=== PATIENT | male | born 1970 | race Caucasian/White ===

== ENCOUNTER 2020-10-11 12:30 | Outpatient (REF) | payer BC, SELFPAY ==
[2020-10-11 12:42] LABS: COVID-19 Test Positive (Negative)
== END 2020-10-11 12:31 | disposition home or self-care (01) ==
LOC: HO.LAB 12:30
PROVIDERS: PCP Internal Medicine; Visit Provider Internal Medicine
DX: Z20.828 Contact with and (suspected) exposure to other viral communicable diseases (principal)
CPT/HCPCS: 36415; 87635; C9803

== ENCOUNTER 2023-07-19 06:49 | Day surgery (SDC) | payer BC, SELFPAY ==
--- NOTE | 2023-07-18 10:36 | P.CONAN_ITS ---
Documented by User: Christian Calvillo NP 07/18/23 10:37 HPI - Anesthesia Eval Consult details Narrative: 53yo M for Colonoscopy [facility] Past Medical History Medical History Environmental allergies HTN (hypertension) HLD (hyperlipidemia) History of paresthesia Asthma Surgical History Surgical History History of oral surgery Hx of umbilical hernia repair H/O arthroscopy of left knee Social History Social History Patient Tobacco Use Status: Never used Tobacco Are you DNR?: No Advance Directives: No Advance Directives Information Provided: Yes Nutrition Risks: No Nutritional Risk Meds Allergies Allergy/AdvReac Type Severity Reaction Status Date / Time horse dander [HORSE DANDER] Allergy Unknown ASTHMA Unverified 06/23/20 14:53 Home Medications Medication Instructions Recorded Confirmed Last Taken Type albuterol sulfate 90 mcg/actuation 2 puff inhalation Q6H PRN 07/22/20 07/22/20 Unknown History aerosol inhaler (ProAir HFA) Shortness Of Breath Or Wheezing budesonide-formoterol HFA 160 2 puff inhalation BID 07/22/20 07/22/20 07/19/23 History mcg-4.5 mcg/actuation aerosol inhaler (Symbicort) lisinopril 10 mg tablet 10 mg PO DAILY 07/22/20 07/22/20 07/19/23 History Exam Exam Date and Time: July 18, 2023 1036 Assessment and Plan Assessment Anesthesia Assessment: Chart Reviewed Documented by User: Ericka Vargas MD 07/19/23 07:42 [facility] Active Problems Active Problems: Left arm paresthesia resolved Denies CAMI. Never tested but does snore Increased BMI 49.6 Asthma - inhaler prn Past Medical History Medical History Environmental allergies HTN (hypertension) HLD (hyperlipidemia) History of paresthesia Asthma Family History Family history of problems with anesthesia: Yes (Unsure but brother had problems as a child-tonsillectomy) Surgical History Surgical History History of oral surgery Hx of umbilical hernia repair H/O arthroscopy of left knee History of Problems with Anesthesia: No Social History Social History Patient Tobacco Use Status: Never used Tobacco Are you DNR?: No Advance Directives: No Advance Directives Information Provided: Yes Nutrition Risks: No Nutritional Risk Meds Allergies Allergy/AdvReac Type Severity Reaction Status Date / Time horse dander [HORSE DANDER] Allergy Unknown ASTHMA Unverified 06/23/20 14:53 Home Medications Medication Instructions Recorded Confirmed Last Taken Type albuterol sulfate 90 mcg/actuation 2 puff inhalation Q6H PRN 07/22/20 07/22/20 Unknown History aerosol inhaler (ProAir HFA) Shortness Of Breath Or Wheezing budesonide-formoterol HFA 160 2 puff inhalation BID 07/22/20 07/22/20 07/19/23 History mcg-4.5 mcg/actuation aerosol inhaler (Symbicort) lisinopril 10 mg tablet 10 mg PO DAILY 07/22/20 07/22/20 07/19/23 History Exam Height,Weight and Vital Signs: Height 5 ft 10 in Weight 156.943 kg Vital Signs Temp Pulse Resp BP Pulse Ox O2 Del Method 07/19/23 06:54 96.9 F 81 20 153/117 H 95 Room Air Airway Mallampati Class: IV TM Dist: >3cm Neck ROM: Full Loose/Missing/Broken Teeth: No (Denies broken, loose, missing teeth) Heart: RRR Lungs: CTAB Assessment and Plan Assessment Anesthesia Assessment: Anesthesia Plan Discussed Final Anesthetic Review Family History of Problems with Anesthesia: Yes (Unsure but brother had problems as a child-tonsillectomy) History of Problems with Anesthesia: No NPO: Yes ASA Class: III Final Preanesthetic Review: No Changes in Pt Med Stat, Meds/Allgs Chart Reviewed, Consent Obtained/Reviewed and Anes Risks/Benef Reviewed Patient Risk: Intermediate Procedure Risk: Low Assessment/Block/Sedation in SS: Assess/Block/Sedation-SS Anesthetic Plan Anesthetic Plan: GA and MAC:
[2023-07-19 05:55] VITALS: BMI 49.6
[2023-07-19 06:54] VITALS: BP 153/117; PULSE 81; RESP 20; TEMP 36.1; O2SAT 95
[2023-07-19] MEDS: Lactated Ringers 1,000 ML 100 ML IVCONT (07:19)
[2023-07-19 07:42] VITALS: BP 166/85
--- NOTE | 2023-07-19 08:10 | MHC.SHP ---
Pre-Procedural Eval Section A Date of Service: 07/19/23 Section B Chief Complaint: Melena Details of Present Illness: see H&P Relevant Family History (Specify if Yes): No Relevant Social History: None Present Medications: see Short Stay Collaborative assessment Medical History: No relevant PMH History of Previous Operations: No relevant previous surgery Allergies: Allergies Allergy/AdvReac Type Severity Reaction Status Date / Time horse dander [HORSE DANDER] Allergy Unknown ASTHMA Unverified 06/23/20 14:53 Plan I have reviewed the history and physical and performed a pertinent physical examination on my patient. No changes have occurred unless specified. Time Spent With Patient Time: Total time managing care of this patient today ____ minutes.
--- NOTE | 2023-07-19 09:03 | PM.OP ---
Brief Operative Note Date of Service: 07/19/23 Pre-op diagnosis: blood in stool Post-op diagnosis: same Procedure: colonoscoyp Surgeon: Toño White MD Anesthesia: MAC Was an Product Representative used for this Procedure?: No Estimated blood loss (mL): 2 Pathology: other Condition: stable Disposition: PACU
[2023-07-19 09:04] VITALS: BP 95/40; PULSE 83; RESP 16; TEMP 37; O2SAT 98
--- NOTE | 2023-07-19 09:17 | OP_ITS ---
DATE OF SERVICE: 07/19/2023 SURGEON: Toño White MD INDICATIONS: Blood in the stool. PREOPERATIVE DIAGNOSIS: POSTOPERATIVE DIAGNOSIS: PROCEDURE PERFORMED: Colonoscopy to the terminal ileum with snare polypectomy and biopsy. ESTIMATED BLOOD LOSS: COMPLICATIONS: ANESTHESIA: Monitored anesthesia care. ASSISTANTS: SPECIMENS: DESCRIPTION OF PROCEDURE: History and physical performed, the risks and benefits of the procedure were explained to the patient. Informed consent was obtained. The patient was placed in the left lateral decubitus position. A digital rectal exam was performed and was found to be normal. The Olympus pediatric video colonoscope was introduced into the rectum and advanced to the cecum. The cecum was identified by transillumination, palpation, and identification of ileocecal valve. Examination was performed. The scope was removed. He tolerated the procedure well and was taken to recovery in stable condition. FINDINGS: The terminal ileum was normal. The visualized colonic mucosa was normal. The quality of the prep was good. There was some retained stool coating the mucosa in the right colon and cecum. This was washed and suctioned. Two polyps were identified. The 1st was measured approximately 8 mm and was removed with a snare. The base of the polyp was biopsied and recovery of the snared part of the polyp is pending at the time of the procedure. The 2nd polyp was removed with biopsy forceps measuring less than 5 mm. The polyps were located at 85 cm and 75 cm. There was moderate sigmoid diverticulosis with wide-mouth diverticula. Retroflexed examination showed some moderate-sized internal hemorrhoids, likely the source of the blood in the stool. IMPRESSION: Colon polyps. RECOMMENDATIONS: Follow up with the biopsy results. MD JES Delaney/DARAL / [id number]
[2023-07-19 09:19] VITALS: BP 143/75; PULSE 80; RESP 16; TEMP 36.8; O2SAT 95
== END 2023-07-19 09:40 | disposition home or self-care (01) ==
PROVIDERS: PCP Internal Medicine; Visit Provider Internal Medicine Gastroenterology
PROC: 0DJD8ZZ Inspection of Lower Intestinal Tract, Via Natural or Artificial Opening Endoscopic (ICD-10-PCS; CPT 45378; principal; 2023-07-19 08:00)
DX: K92.1 Melena (principal); D12.4 Benign neoplasm of descending colon; K63.5 Polyp of colon; K57.30 Diverticulosis of large intestine without perforation or abscess without bleeding; K64.8 Other hemorrhoids; I10 Essential (primary) hypertension; E78.5 Hyperlipidemia, unspecified; J45.909 Unspecified asthma, uncomplicated; Z79.51 Long term (current) use of inhaled steroids; Z79.899 Other long term (current) drug therapy
CPT/HCPCS: 45385; 45380; 88305; J2250

== ENCOUNTER 2025-01-08 09:15 | Outpatient (REF) | payer BC, SELFPAY ==
--- NOTE | ~2025-01-08 | XR_ITS ---
EXAMINATION: XR WRIST 3 OR MORE VIEWS RIGHT HISTORY: LUMP OVER RADIAL ARTERY. R/O GANGLION COMPARISON: There are no prior studies available for comparison. FINDINGS: Three views of the right wrist are submitted. Osseous mineralization is normal. There is no fracture or dislocation. There is mild degenerative change of the 1st carpometacarpal joint, with joint space narrowing and subchondral cyst formation. The soft tissues are unremarkable. XR/XR wrist RT min 3V IMPRESSION: Mild degenerative change of the 1st carpometacarpal joint. Electronically signed by: Devonte Underwood MD 01/08/2025 12:34 PM EDT
--- OUTSIDE RECORDS SUMMARY | 2025-01-08 09:58 | XMS_ITS | Clinical Summary ---
Author Organization [address] Address [address] [place] [phone] Phone Care Team Providers Care Visualizer Name Role Phone John Julian MD Primary Care Provider Allergies No known active allergies Medications fluticasone-salm eterol (ADVAIR DISKUS) 250-50 mcg/dose diskus inhaler Inhale 1 puff into the lungs 2 (two) times daily.. 1 each 04/15/2017 Active Social History Tobacco Use Types Packs/Day Years Used Date Smoking Tobacco: Never Alcohol Use Standard Drinks/Week Comments Yes 0 (1 standard drink = 0.6 oz pur e alcohol) socially Sex and Gender Information Value Date Recorded Sex Assigned at Not on file Legal Sex Male 10:49 AM EDT Gender Identity Not on file Sexual Orientation Not on file Last Filed Vital Signs Vital Sign Reading Time Taken Comments Blood Pressure 140/90 04/15/2017 12:59 PM EDT Pulse 81 04/15/2017 12:59 PM EDT Temperature - - Respiratory Rate 18 04/15/2017 12:59 PM EDT Oxygen Saturation 98% 04/15/2017 12:59 PM EDT Inhaled Oxygen Concentration - - Weight 136.1 kg (300 lb) 04/15/2017 10:58 AM EDT Height 177.8 cm (5' 10 ) 04/15/2017 10:58 AM EDT Body Mass Index 43.05 04/15/2017 10:58 AM EDT Plan of Treatment Health Maintenance Due Date Last Done Comments HIV screening 1981 Hepatitis C screening 1986 Tetanus adult (Td q 10,TDAP once) 1988 Lipid disorder screening 2008 Colon cancer screening, Colonoscopy 2013 Shingles vaccine (Shingrix) (1 of 2 - Shingrix (RZV) 2 Dose Standard Series) 2018 Diabetes screening 04/15/2020 04/15/2017 Influenza vaccine 05/07/2024 Covid-19 vaccine series (1 - 2023-25 season) 2024 Pneumococcal Vaccine (50+ ye ars) (1 of 1 - PCV) 2033 RSV Immunization (1 - 1-dose 75+ series) 2043 Meningococcal Vaccine Aged Out No moriah stephanie eligible based on patient's age to complete this topic Pneumococcal Vaccine (2 - 49 years) Aged Out No longer eligible b ased on patient's age to complete this topic Procedures Procedure Name Priority Date/Time Associated Diagnosis Comments BASIC METABOLIC PANEL STAT 04/15/2017 11:43 AM EDT from Last 3 Months or Most Recently Relevant to Health Maintenance Results * (ABNORMAL) Basic metabolic panel (04/15/2017 11:43 AM EDT) Glucose 119(H) 65 - 110 mg/dL 04/15/2017 12:27 PM [facility] BUN 15 7 - 18 mg/dL 04/15/2017 12:27 PM [facility] Creatinine 0.77 0.70 - 1.30 mg/dL 04/15/2017 12:27 PM [facility] eGFR (-SOMALI) >60 >60 mL/min/1. 73m2 04/15/2017 12:27 PM [facility] eGFR (NON -Congolese) >60 >60 mL/min/1. 73m2 04/15/2017 12:27 PM [facility] Comment: (NOTE) ? These are estimated GFR values resulting from ? utilization of a calculation incorporating ? the best data available for input, but all ? assumptions may not be correct in every ? case. ??In addition, there are several ? situations (elderly over 70 years, , ? serious co morbidities, extremes ? of body size or nutritional status) which ? could contribute to a misleading result. ? Therefore, clinical correlation is advised ? to prevent arriving at an erroneous ? conclusion based solely on the calculation ? utilized. (NOTE) ? These are estimated GFR values resulting from ? utilization of a calculation incorporating ? the best data available for input, but all ? assumptions may not be correct in every ? case. ??In addition, there are several ? situations (elderly over 70 years, , ? serious co morbidities, extremes ? of body size or nutritional status) which ? could contribute to a misleading result. ? Therefore, clinical correlation is advised ? to prevent arriving at an erroneous ? conclusion based solely on the calculation ? utilized. Sodium 137 136 - 145 mmol/L 04/15/2017 12:27 PM [facility] Potassium 4.2 3.5 - 5.1 mmol/L 04/15/2017 12:27 PM [facility] Chloride 105 98 - 107 mmol/L 04/15/2017 12:27 PM [facility] CO2 26 21 - 32 mmol/L 04/15/2017 12:27 PM [facility] Anion Gap 6 5 - 15 mmol/L 04/15/2017 12:27 PM [facility] Calcium 8.7 8.5 - 10.1 mg/dL 04/15/2017 12:27 PM [facility] Blood specimen (specimen) Venipuncture / Unknown 04/15/2017 11:43 AM EDT 04/15/2017 11:46 AM EDT us Benoit Fernandez MD LAB BLOOD ORDERABLES Fi nal Result [facility] [address] [place] [address], [facility] [phone] from Last 3 Months or Most Recently Relevant to Health Maintenance Insurance [facility] Care Teams Visualizer Relationship Specialty Start Date End Date John Julian MD [address] [place] [address] PCP - General Internal Medicine 04/15/17
--- OUTSIDE RECORDS SUMMARY | 2025-01-08 09:58 | XMS_ITS ---
Author Organization [facility] Address [address] [place] [phone] Care Team Providers Care Svp Programmatic Tv Name Role Phone Eliel KERNS, John Primary Care Provider Unavailab Toño Dickinson Jr Unavailable REASON FOR VISIT blood in stool Encounters Encounter Location Date Provider Diagnosis [facility] Outpatient [address] [place] [phone] 07/19/2023 Toño White Jr Hematochezia K92.1 and Colon polyps K63.5 Assessments Encounter Date Diagnosis (ICD Code) Assessment Notes Treatment Notes Treatment Clinical Notes Section Notes 07/19/2023 Hematochezia (ICD-10 - K92.1) 07/19/2023 Colon polyps (ICD-10 - K63.5) Plan Of Treatment No Information Progress Notes * LUIS A CHASE PDOB: [birth year] (54 yo M)Acc No.[id number]:07/19/2023 COLON WITH MAC Patient:?LUIS A CHASE Provider:?Toño White MD :1970???Age:53 Y???Sex:Male He e:07/19/2023 Address:[address] [place] [address] Pcp:John Julian MD Subjective: * Chief Complaints: * ???1. Blood in stool. * Medical History:? Objective: * Vitals:? Assessment: * Assessment: 1.?Hematochezia - K92.1 (Bebe scarlet)???2.?Colon polyps - K63.5??? Plan: * Treatment: * Procedure Codes:?26022 LESIO N REMOVAL COLONOSCOPY, 99223 COLONOSCOPY AND BIOPSY, Modifiers: 59 * * The named appointment provid er may or may not be the originator of this progress note, and it is not deemed complete until electronically signed by the appointment provider. Sign off status: Pending * Provider:?Toño White MD Date:?1 Generated for Eileen mojica/Rajesh/Rangelitting on:?01/08/2025 09:58 AM EDT
--- OUTSIDE RECORDS SUMMARY | 2025-01-08 09:58 | XMS_ITS ---
Author Organization [facility] Address [address] [place] [phone] Care Team Providers Care Embossograph Operator Name Role Phone John Julian MD Primary Care Provider Unavailab Toño Dickinson Jr Unavailable REASON FOR VISIT pathology Encounters Encounter Location Date Provider Diagnosis [facility] [address] [place] [phone] 07/23/2023 Toño White Jr Plan Of Treatment No Information Progress Notes * LUIS A CHASE PDOB: [birth year] (53 yo M)Acc No.[id number]:07/23/2023 Patient:?LUIS A CHASE :1970???Age:53 Y???Sex:Male Address:[address] [place] [address], [id number] * true * Date:? Generated for Printi galina/Naelg/eTransmitting on:?01/08/2025 09:58 AM EDT
--- OUTSIDE RECORDS SUMMARY | 2025-01-08 09:58 | XMS_ITS | Patient Health Record ---
Author Organization [facility] Address [address] [place] [address] Care Team Providers Care Title I Paraprofessional Name Role Phone John Julian MD Primary Care Provider Toño Gonzalez Jr Unavailable Allergies Allergen (clinical drug ingredient) Drug/Non Drug Allergy documented on EMR Reaction Allergy Type Onset Date Status enviromental and animals (uncoded) Unknown Allergy Active Reason For Referral No Information Medications Medication SIG (Take, Route, Frequency, Duration) Notes Start Date End Date Status MiraLax (colon prep) 17 GM/SCOOP mixed with Gatorade or Crystal Light Orally begin at 5:00 p.m. the day before the procedure for 1 day 05/27/2023 Active Rosuvastatin Calcium 5 MG Oral for 30 Active Albuterol Sulfate HFA 108 (90 Base) MCG/ACT Inhalation for 30 Activ e Lisinopril 10 MG Oral for 30 A ctive Symbicort 160-4.5 MCG/ACT 2 puffs Inhala tion Twice a day Active Multivitamin Active Vitamin B Complex Ac tive Immunizations Vaccine Route Administration Date Status Comme nts Influenza Unknown 07/21/2018 Administered Influenza Unknown 06/07/2019 Administered Social History Tobacco Use: Social History Observation Description Date Details (start date - stop date) Never Smoker NA - NA Tobacco Use/Smoking Question Answer Notes Patient is a nonsmoker Alcohol Screen Question Answer Notes Did you have a drink contain ing alcohol in the past year? Yes How often did you have a dri nk containing alcohol in the past year? 2 to 4 times a month (2 points) How many drinks did you have on a typical day when you were drinking in the past year? 5 or 6 drinks (2 points) How often did you have 6 or more drinks on one occasion in the past year? Monthly (2 points) Points 6 Interpretation Positive Problems Problem Type SNOMED Code ICD Code Onset Dates Problem Status W/U Status Risk Notes Problem 177931713 Colon cancer screening (Z12.11) Active confirmed Problem 225061718 Encounter for other preprocedural examination (Z01.818) Active confirmed Problem 776603838 Blood in stool (K92.1) Active confirmed Plan Of Treatment Future Test Test Name Order Date COLONOSCOPY 12/10/2018 COLONOSCOPY 12/10/2019 COLONOSCOPY 05/27/2023 Insurance Providers Payer Name Payer Address Payer Phone Subscriber Number Group Number Insured Name Patient Relationship to Insured Coverage Start Date Coverage End Date [facility] [address] [place] [address] [id number] LUIS A CHASE Self - patient is the insured Medical (General) History Medical History History ICD Code Hypertension asthma Hyperlipidemia Surgical History Surgery Date(Month/Year) left knee arthroscopy x4 1982,1988,2001, 2004 umbilical hernia repair 2017 oral surgery implant 2013
== END 2025-01-08 09:16 | disposition home or self-care (01) ==
LOC: HO.HMGCX 09:15
PROVIDERS: PCP Internal Medicine; Visit Provider Internal Medicine
DX: R22.31 Localized swelling, mass and lump, right upper limb (principal)
CPT/HCPCS: 73110

== ENCOUNTER → 2025-01-08 09:21 | Outpatient (BNV) | payer BC, SELFPAY | PROVIDERS: PCP Internal Medicine; Visit Provider Radiology Diagnostic Radiology | DX: R22.31 Localized swelling, mass and lump, right upper limb (principal) | CPT/HCPCS: 73110 ==

== ENCOUNTER 2025-03-10 08:26 | Outpatient (AMB) | payer BC, SELFPAY ==
--- NOTE | 2025-03-10 08:27 | A.OFFVIS_ITS ---
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 Patient reports he notices it for a couple of years. He notices that it got bigger these past couple months. Patient mentions that it is not tender to touch but it feel like fluid. 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 He has noticed this mass for approximately two years, with significant growth noted during the last three to six months. 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 An X-ray was previously obtained and reviewed in consultation, showing no alarming findings. The patient experiences night-time discomfort, suggesting possible carpal tunnel syndrome. Discussed potential surgical intervention versus observation, considering future risks related to the cyst's growth. Review of Systems - Musculoskeletal: Reports a mass on the wrist, pain, and numbness. - Neurological: Reports numbness and tingling. - General: Denies diabetes, blood thinner use, or CPAP therapy. Physical Exam - Musculoskeletal- Presence of a volar wrist mass over radial styloid. nontender to palpation, fluid filled. minimally mobile. Results - Tests and Diagnostics: X-ray of the wrist, showing no significant arthritis or abnormalities. Plan I educated the patient about the condition. I discussed both operative and nonoperative treatment options. The patient would like to proceed with surgery. The risks and benefits of operative treatment were discussed with the patient and the patient wishes to proceed with surgery. These risks include, but are not limited to, risk of damage to blood vessels, nerves, tendons, infection, recurrence, incomplete relief of preoperative symptoms, persistent pain, possible need for further surgery, and the risks associated with regional blocks and/or anesthesia. Plan is to take the patient to the operating room at some point in the next few weeks for the following procedures: 1. Volar wrist ganglion excision under general All of the preoperative paperwork including the consent was discussed today. All of the patient's questions were answered in the clinic today. The patient understands that they will be in contact with our surgical sales representative to discuss scheduling their procedure. Patient denies diabetes, blood thinners, asthma, heart issues, lung issues, kidney issues, or current smoking. Discussion Notes I discussed with the patient the likely diagnosis of a ganglion cyst and the available management options. Surgical removal was recommended due to the cyst's growth and location over the radial artery. Alternatives of observing were considered, with emphasis on the potential for further growth and resultant complications if untreated. Consent included risks such as infection, scarring, injury to nearby structures, and recurrence, balanced with its benefits and anticipated improvement in symptoms. The patient expressed understanding and agreement with the surgical approach, preferring scheduling in early June. Instructions provided include preoperative preparations and post-operative restrictions, ensuring detailed follow-up for optimal outcomes post-surgery. Coding Level of Care Code New Pt Level 4 (59273) Diagnoses Ganglion cyst of volar aspect of right wrist M67.431
--- OUTSIDE RECORDS SUMMARY | 2025-03-10 08:33 | XMS_ITS | Clinical Summary ---
Author Organization [address] Address [address] [place] [phone] Phone Care Team Providers Care Deputy Sheriff Civil Division Name Role Phone oJhn Julian MD Primary Care Provider Allergies No [...] screening 2008 Colon cancer screening, Colonoscopy 2013 Pneumococcal Vaccine (50+ ye ars) (1 of 1 - PCV) 2018 Shingles vaccine (Shingrix) (1 of 2 - Shingrix (RZV) 2 Dose Standard Series) 2018 Diabetes screening 04/15/2020 04/15/2017 Covid-19 vaccine series (1 - 2023-25 season) 2024 Influenza vaccine 06/07/2025 RSV Immunization (1 - 1-dose 75+ series) [...] 65 - 110 mg/dL 04/15/2017 12:27 PM [facility] BUN 15 7 - 18 mg/dL 04/15/2017 12:27 PM [facility] Creatinine 0.77 0.70 - 1.30 mg/dL 04/15/2017 12:27 PM [facility] eGFR (-DOMINICAN) >60 >60 mL/min/1. 73m2 04/15/2017 12:27 PM [facility] eGFR (NON -Finnish) >60 >60 mL/min/1. 73m2 04/15/2017 12:27 PM [facility] Comment: (NOTE) ? These are [...] 136 - 145 mmol/L 04/15/2017 12:27 PM [facility] Potassium 4.2 3.5 - 5.1 mmol/L 04/15/2017 12:27 PM [facility] Chloride 105 98 - 107 mmol/L 04/15/2017 12:27 PM [facility] CO2 26 21 - 32 mmol/L 04/15/2017 12:27 PM [facility] Anion Gap 6 5 - 15 mmol/L 04/15/2017 12:27 PM [facility] Calcium 8.7 8.5 - 10.1 mg/dL 04/15/2017 12:27 PM [facility] Blood specimen (specimen) Venipuncture / Unknown 04/15/2017 11:43 AM EDT 04/15/2017 11:46 AM EDT us Benoit Fernandez MD LAB BLOOD ORDERABLES Fi nal Result [facility] [address] [place] [address], [facility] [phone] from Last 3 Months or Most Recently Relevant to Health Maintenance Insurance [facility] BCBS Care Teams Deputy Sheriff Civil Division Relationship Specialty Start Date End Date John Julian MD [address] [place] [address] [place] [address] PCP - General Internal Medicine 04/15/17
== END 2025-03-10 09:17 | disposition home or self-care (01) ==
LOC: HO.HOS 08:26
PROVIDERS: PCP Internal Medicine
DX: M67.431 Ganglion, right wrist (principal)
CPT/HCPCS: 99204

== ENCOUNTER 2025-06-04 10:25 | Outpatient (AMB) | payer BC, SELFPAY ==
--- NOTE | 2025-06-04 10:27 | MHC.PC.OV ---
Vital Signs 06/04/25 10:36 Height 11 ft 0.44 in Weight 177 lb 5 oz BMI 7.1 BP 142/63 H Blood Pressure Location Lt brachial Position Sitting Respiration 17 Pulse 87 Pulse Source Pulse Oximeter Temp 97.2 F Temp Source Temporal Artery Scan Pulse Oximetry (%) 96 Oxygen Delivery Method Room Air Intake Visit Reasons: Est Care HTN, asthma Public Welfare Director Required: No Accompanied by: Self / Same As Patient Allergies horse dander (HORSE DANDER) Allergy (Unknown, Verified 06/04/25 11:39) ASTHMA Medication List - Last Reconciled 06/04/25 by Sandee Lu PA-C albuterol sulfate 90 mcg/actuation (ProAir HFA) 2 puffs inhalation Q6H PRN fluticasone furoate-vilanterol 50-25 mcg/dose (Breo Ellipta) inhalation lisinopril 10 mg PO DAILY Tobacco use date assessed: 06/04/25 Dental Screening Dental Screen Date: 06/04/25 Did you have a dental visit in the last 12 months?: Yes Did you have a dental problem in the last 6 months where you did not have access to dental care?: No Was dental information given to patient?: Patient has dentist HPI Est Care HTN, asthma HPI Details The patient is a 55-year-old male presenting for a new patient appointment and management of chronic conditions. The patient has a history of asthma since childhood, currently managed with albuterol and Breo inhalers. He reports that his asthma is well-controlled and has not required follow-up with a child care lead teacher. He previously used Symbicort and Advair but switched to Breo due to insurance coverage issues. 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 He typically maintains a blood pressure around 140/70 mmHg. He has a family history of lung cancer, with both parents having had lung cancer detected following pneumonia diagnoses. He experiences seasonal allergies, particularly to ragweed, causing nasal congestion and postnasal drip. The patient underwent a colonoscopy two years ago, which revealed a small polyp that was benign. He is advised to follow up in five to seven years based on the findings. 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 [employer] Medical History (Updated 06/04/25 @ 11:42 by Sandee Lu PA-C) Seasonal allergies Environmental allergies HTN (hypertension) HLD (hyperlipidemia) History of paresthesia Asthma Surgical History History of oral surgery Hx of umbilical hernia repair H/O arthroscopy of left knee Family History Father Lung cancer Mother Lung cancer Social History Housing: House Alcohol intake: current Alcohol intake frequency: holidays/special occasions only Alcohol type: beer Patient Tobacco Use Status: Never used Tobacco service: No Current occupational status: employed Cognitive needs: No Hearing needs: No Vision needs: No Questionnaire PHQ-9 Over the last 2 weeks, how often have you been bothered by any of the following problems? 1. Little interest or pleasure in doing things: not at all 2. Feeling down, depressed, or hopeless: not at all 3. Trouble falling or staying asleep, or sleeping too much: not at all 4. Feeling tired or having little energy: not at all 5. Poor appetite or overeating: not at all 6. Feeling bad about yourself - or that you are a failure or have let yourself or your family down: not at all 7. Trouble concentrating on things, such as reading the newspaper or watching television: not at all 8. Moving or speaking so slowly that other people could have noticed. Or the opposite - being so fidgety or restless that you have been moving around a lot more than usual: not at all 9. Thoughts that you would be better off or of hurting yourself in some way: not at all Total score: 0 Depression Screening Interpretation: Negative Depression Screening Done: Yes 04837 - PHQ-9 Billing: Yes Source: Developed by Drs. Devonte Beck, Brianna Uriostegui, Jhoan Guzman and colleagues, with an educational ashish from [employer]. Thrive Questionnaire Date Thrive assessed: 06/04/25 I am a: Patient What is your living situation today?: I have a steady place to live Within the past 12 months, did the food you bought not last and you didn't have the money to get more?: Never true Within the past 12 months, did you worry whether your food would run out before you got money to buy more?: Never true Do you have trouble paying for medicines?: No Do you have trouble getting transportation to medical appointments?: No Do you have trouble paying your heating and electricity bill?: No Do you have trouble taking care of your child, family member or friend?: No Do you have trouble with day-to-day activities such as bathing, preparing meals, shopping, managing finances, etc.?: No Are you currently unemployed and looking for a job?: No Are you interested in more education?: No Please select the resources that you would like help with: None Currently or been in a relationship where the following occur: No concerns reported THRIVE Score: 0 AUDIT C Alcohol Use Questionnaire (AUDIT-C) 1. How often do you have a drink containing alcohol?: Monthly or less 2. How many drinks containing alcohol do you have on a typical day when you are drinking?: 1 or 2 3. How often do you have six or more drinks on one occasion?: Never Total Score: 1 Score Reviewed/Action Taken: No MAGNO-7 AMB Questionnaire MAGNO-7 Date MAGNO - 7 assessed: 06/04/25 Feeling nervous, anxious, or on edge: 0 = Not at all Not being able to stop or control worryin = Not at all Worrying too much about different things: 0 = Not at all Trouble relaxin = Not at all Being so restless that it is hard to sit still: 0 = Not at all Becoming easily annoyed or irritable: 0 = Not at all Feeling afraid as if something awful might happen: 0 = Not at all Total MAGNO-7 score (0-4 normal; 5-9 mild; 10-14 moderate; 15-21 severe): 0 Source: Developed by Drs. Devonte Beck, Brianna Uriostegui, Jhoan Guzman and colleagues, with an educational ashish from [employer]. MAGNO-7 Assessment Billing MAGNO-7 Assessment Tool: MAGNO-7 Assessment 99355 Review of Systems Const Details: - Respiratory: Reports asthma, denies wheezing; reports seasonal allergies with nasal congestion and postnasal drip - Cardiovascular: Denies chest pain or palpitations - General: Denies fever All systems reviewed & are unremarkable except as noted in HPI and below Physical exam (Primary Care) Vital Signs: Last Vital Signs Temp 97.2 F 06/04/25 10:36 Pulse 87 06/04/25 10:36 Resp 17 06/04/25 10:36 BP 142/63 H 06/04/25 10:36 Pulse Ox 96 06/04/25 10:36 Oxygen Delivery Method Room Air 06/04/25 10:36 Care Plan Goal for BP management: <140/90 monitor blood pressure at home BMI result Body Mass Index 7.1 BMI Assessment/Plan discussion: High BMI High, discussed plan: lifestyle, weight reduction, dietary, physical activity, alcohol moderation and other Tobacco/Smoking Status: Tobacco use Status Tobacco use date assessed 06/04/25 06/04/25 10:32 Patient Tobacco Use Status Never used Tobacco 06/04/25 10:36 PHQ-9: PHQ-9 Score PHQ-9: Total score 0 06/04/25 10:32 Depression Screening Interpretation: Negative Thrive Assessment: Date of Thrive Assessment Date Thrive assessed 06/04/25 06/04/25 10:32 Currently or been in a relationship where the following occur: No concerns reported Const Other: Appearance: Alert. Oriented X3. No acute distress. Head: Normal external exam. Normocephalic. Atraumatic. Eyes: Pupils are equal, round, and reactive to light. Extraocular movements intact. Conjunctiva and sclera normal. Eyelids normal. Ears: External auditory canal normal. Tympanic membranes normal. Throat: Pharynx normal. Uvula midline. Moist mucous membranes. Neck: Normal inspection. Neck supple. Full range of motion. No adenopathy. Thyroid Normal. No meningeal signs. No neck mass noted. Cardiovascular: Normal heart rate and rhythm. Heart sound normal. No murmurs noted. Pulses normal throughout. Respiratory: No respiratory distress. Painless inspiration. Breath sounds normal. No wheezes/rales/rhonchi noted. Chest nontender. No accessory muscle usage noted or decreased air movement noted. Abdomen: Soft and nontender. Bowel sounds normal in all 4 quadrants. No distention noted. No organomegaly noted. No visible injury noted. Back: No costovertebral angle tenderness. Full range of motion noted. Skin: Skin warm and dry. Normal skin color. Normal skin turgor. No rashes/lesions/lacerations noted. Extremities: No lower extremity edema. Extremities exhibit normal range of motion. Extremities nontender. No calf tenderness or swelling. Neuro: Oriented X 3. No motor deficit. No sensory deficit. Reflexes normal. Results Reviewed Results Reviewed: - Labs: Hemoglobin A1c previously reported as 5.2 or 5.6 - Colonoscopy: One small benign polyp found two years ago Coding Level of Care Code New Pt Level 4 (22140) Complex EM visit Add On G2211 Diagnoses Asthma J45.909 HTN (hypertension) I10 Seasonal allergies J30.2 Additional Codes PHQ-9 - 00265 - PHQ-9 Billing: Yes ([id number]) MAGNO-7 Assessment Billing - MAGNO-7 Assessment Tool: MAGNO-7 Assessment 18434 ([id number]) Assessment & Plan Assessment & Plan (1) Asthma: Code(s): J45.909 - Unspecified asthma, uncomplicated Category: Medical Plan: The patient's asthma is well-controlled with the use of albuterol and Breo inhalers. He has not required follow-up with a child care lead teacher due to stable symptoms. (2) HTN (hypertension): Code(s): I10 - Essential (primary) hypertension Category: Medical Plan: The patient is on lisinopril 10 mg daily, with occasional adjustments based on his work schedule. Blood pressure is typically around 140/70 mmHg. (3) Seasonal allergies: Code(s): J30.2 - Other seasonal allergic rhinitis Category: Medical Plan: The patient experiences seasonal allergies, particularly to ragweed, causing nasal congestion and postnasal drip. Plan Plan Patient was informed and verbally consented to the use of an ambient scribe for clinic note documentation during this visit. 1. Asthma The patient's asthma is well-controlled with the use of albuterol and Breo inhalers. He has not required follow-up with a child care lead teacher due to stable symptoms. 2. Hypertension The patient is on lisinopril 10 mg daily, with occasional adjustments based on his work schedule. Blood pressure is typically around 140/70 mmHg. 3. Seasonal Allergies The patient experiences seasonal allergies, particularly to ragweed, causing nasal congestion and postnasal drip. I discussed with the patient the management of his asthma, emphasizing the importance of continuing his current inhaler regimen as it is effective. We also reviewed his hypertension management, ensuring he understands the dosing flexibility with lisinopril based on his work schedule. I advised him on the need for regular follow-up and blood work to monitor his health status, including a CBC, CMP, and other relevant tests. Orders: Orders PSA,Total (Free>4and<10) Today Z00.00 - Encounter for general adult medical examination without abnormal findings Lipid Panel Today Z00.00 - Encounter for general adult medical examination without abnormal findings Liver Panel Today Z00.00 - Encounter for general adult medical examination without abnormal findings TSH reflex Free T4 Today Z00.00 - Encounter for general adult medical examination without abnormal findings Complete Blood Count Auto Diff Today Z00.00 - Encounter for general adult medical examination without abnormal findings Comprehensive [place]. Panel Fast Today Z00.00 - Encounter for general adult medical examination without abnormal findings C Reactive Protein Today Z00.00 - Encounter for general adult medical examination without abnormal findings Hemoglobin A1c Today Z00.00 - Encounter for general adult medical examination without abnormal findings Vitamin B12 and Folate Today Z00.00 - Encounter for general adult medical examination without abnormal findings Magnesium Today Z00.00 - Encounter for general adult medical examination without abnormal findings Vitamin D 25-OH Total Today Z00.00 - Encounter for general adult medical examination without abnormal findings Medications: New lisinopril 10 mg PO DAILY 120 tabs 3RF Patient Instructions: - Continue using albuterol and Breo inhalers as prescribed. - Monitor blood pressure regularly and adjust lisinopril dosage as needed based on work schedule. - Schedule and complete blood work before the next annual visit. - Follow up with a colonoscopy in five to seven years.
[2025-06-04 10:36] VITALS: BP 142/63; PULSE 87; RESP 17; TEMP 36.2; O2SAT 96
--- OUTSIDE RECORDS SUMMARY | 2025-06-04 11:06 | XMS_ITS | Clinical Summary ---
Author Organization [address] Address [address] [place] [phone] Phone Care Team Providers Care Applications Engineering Manager Name Role Phone John Julian MD Primary Care Provider [phone] Allergies No known active allergies Medications fluticasone-salm [...] 04/15/2020 04/15/2017 Covid-19 vaccine series (1 - 2023- season) 2024 Influenza vaccine 06/07/2025 RSV Immunization (1 - 1-dose 75+ series) 2043 Meningococcal B Vaccine Aged Out No l onger eligible based on patient's age to complete this topic Meningococcal Vaccine Aged Out No moriah stephanie eligible based on patient's age to complete this topic Procedures Procedure Name Priority Date/Time Associated Diagnosis Comments BASIC METABOLIC PANEL STAT 04/15/2017 11:43 AM EDT from Last 3 Months or Most Recently Relevant to Health Maintenance Results * (ABNORMAL) Basic metabolic panel (04/15/2017 11:43 AM EDT) Glucose 119(H) 65 - 110 mg/dL 04/15/2017 12:27 PM [facility] BUN 15 7 - 18 mg/dL 04/15/2017 12:27 PM [facility] Creatinine 0.77 0.70 - 1.30 mg/dL 04/15/2017 12:27 PM [facility] eGFR (-[place]) >60 >60 mL/min/1. 73m2 04/15/2017 12:27 PM [facility] eGFR (NON -Burundian) >60 >60 mL/min/1. 73m2 04/15/2017 12:27 PM [facility] Comment: (NOTE) These are estimated GFR values resulting from utilization of a calculation incorporating the best data available for input, but all assumptions may not be correct in every case. In addition, there are several situations (elderly over 70 years, , serious co morbidities, extremes of body size or nutritional status) which could contribute to a misleading result. Therefore, clinical correlation is advised to prevent arriving at an erroneous conclusion based solely on the calculation utilized. (NOTE) These are estimated GFR values resulting from utilization of a calculation incorporating the best data available for input, but all assumptions may not be correct in every case. In addition, there are several situations (elderly over 70 years, , serious co morbidities, extremes of body size or nutritional status) which could contribute to a misleading result. Therefore, clinical correlation is advised to prevent arriving at an erroneous conclusion based solely on the calculation utilized. Sodium 137 136 - 145 mmol/L 04/15/2017 12:27 PM [facility] Potassium 4.2 3.5 - 5.1 mmol/L 04/15/2017 12:27 PM [facility] Chloride 105 98 - 107 mmol/L 04/15/2017 12:27 PM [facility] CO2 26 21 - 32 mmol/L 04/15/2017 12:27 PM [facility] Anion Gap 6 5 - 15 mmol/L 04/15/2017 12:27 PM [facility] Calcium 8.7 8.5 - 10.1 mg/dL 04/15/2017 12:27 PM [facility] Blood specimen (specimen) Venipuncture / Unknown 04/15/2017 11:43 AM EDT 04/15/2017 11:46 AM EDT Benoit Fernandez MD LAB BLOOD ORDERABLES nal Result [facility] [address] [place] [address], [facility] [phone] from Last 3 Months or Most Recently Relevant to Health Maintenance Insurance [facility] Care Teams Applications Engineering Manager Relationship Specialty Start Date End Date John Julian MD [address] [place] [id number] PCP - General Internal Medicine 04/15/17
--- OUTSIDE RECORDS SUMMARY | 2025-06-04 11:06 | XMS_ITS | Patient Health Record ---
Author Organization [facility] Address [address] [place] [address] Care Team Providers Care Crane Engineer Name Role Phone Eliel (RETIRED) John KERNS Primary Care Provider Unavailable Toño White Jr Unavailable [phone] Allergies Allergen (clinical drug ingredient) Drug/Non Drug [...] Problem Status W/U Status Risk Notes Problem [id number] Colon cancer screening (Z12.11) Active confirmed Problem [id number] Encounter for other preprocedural examination (Z01.818) Active confirmed Problem [id number] Blood in stool (K92.1) Active confirmed Plan Of Treatment Future Test Test Name Order Date COLONOSCOPY 12/10/2018 COLONOSCOPY 12/10/2019 COLONOSCOPY 05/27/2023 Insurance Providers Payer Name Payer Address Payer Phone Subscriber Number Group Number Insured Name Patient Relationship to Insured Coverage Start Date Coverage End Date [facility] [address] [place] [address] [id number] LUIS A CHASE Self - patient is the insured Medical (General) History Medical History History ICD Code Hypertension asthma Hyperlipidemia Surgical History Surgery Date(Month/Year) left knee arthroscopy x4 1982,1987,2001, 2004 umbilical hernia repair 2017 oral surgery implant 2013
== END 2025-06-04 11:01 | disposition home or self-care (01) ==
LOC: HO.HMCSH 10:25
PROVIDERS: PCP Internal Medicine; Visit Provider Physician Assistant Medical
DX: J45.909 Unspecified asthma, uncomplicated (principal); I10 Essential (primary) hypertension; J30.2 Other seasonal allergic rhinitis

== ENCOUNTER → 2025-06-04 10:25 | Outpatient (BNVA) | payer BC, SELFPAY | PROVIDERS: PCP Internal Medicine; Visit Provider Physician Assistant Medical | DX: I10 Essential (primary) hypertension (principal); J45.909 Unspecified asthma, uncomplicated | CPT/HCPCS: 96127 ==